=== PATIENT | female | born 1970 | race Caucasian/White ===

== ENCOUNTER 2016-09-27 07:07 | Emergency (ER) | payer OTHER ==
[2016-09-27] MEDS ORDERED: Ondansetron HCl/PF 4 MG/2 ML Vial ONE (07:14)
[2016-09-27 07:37] LABS: #Basophils 0.1 thou/uL (0.0-0.2); #Eosinphils 0.1 thou/uL (0.0-0.7); #Lymphocytes 1.9 thou/uL (1.20-3.40); #Monocytes 0.5 thou/uL (0.11-0.59); #Neutrophils 3.3 thou/uL (1.40-6.50); %Basophils 1.9 % (0.0-1.0); %Eosinophils 1.1 % (0.0-10.0); %Monocytes 8.5 % (0.0-10.0); Hematocrit 43.4 % (36.0-47.0); Mean Platelet Volume 6.4 fL (7.4-10.4); White Blood Cell (WBC) Count 5.9 thou/uL (4.8-10.8)
[2016-09-27 07:38] LABS: Bilirubin Negative (Negative); Blood, Urine Negative (Negative); Glucose, Urine (Dipstick) Negative (Negative); Ketone, Urine Negative (Negative); Nitrite Negative (Negative); Protein, Urine (Dipstick) Negative (Neg-Trace); Urobilinogen 0.2 mg/dL (0.2-1.0)
[2016-09-27 07:52] LABS: Troponin I 0.013 ng/mL (< 0.028)
[2016-09-27 08:00] LABS: ALT (SGPT) 18 U/L (0-55); AST (SGOT) 25 U/L (5-34); Alkaline Phosphatase 51 U/L (40-150); Anion Gap 18 mmol/L (10-20); BUN (Urea Nitrogen) 15 mg/dL (7.0-18.7); Bilirubin, Total 0.7 mg/dL (0.2-1.2); Calc. Creatinine Clearance 0 mL/min (70-130); Calcium 9.8 mg/dL (7.8-10.44); Carbon Dioxide 22 mmol/L (22-29); Chloride 105 mmol/L (98-107); Estimated GFR-MDRD 77; Globulin 3.4 g/dL (2.4-3.5); Protein, Total 8.1 g/dL (6.0-8.3)
--- NOTE | 2016-09-27 08:41 | ERRECORD ---
[facility] EMERGENCY RECORD HPI CHEST PAIN (07:24 WMEI) CHIEF COMPLAINT: Patient presents for evaluation of chest pain, ongoing. HISTORIAN: History provided by patient. LOCATION: Symptoms are localized, most severe in substernal area. QUALITY: Pain is dull in nature, described as pressure-like. TIME COURSE: Sudden onset of symptoms, 30 MIN, Symptoms are improving. ASSOCIATED WITH: No associated fever, Associated with nausea, No associated shortness of breath. EXACERBATED BY: Patient's condition exacerbated by nothing. RELIEVED BY: Patient's condition relieved by nothing. ROS (07:25 WMEI) CONSTITUTIONAL: Historian denies chills, denies fever. EYES: Historian denies eye pain, denies eye discharge. ENT: Historian denies rhinorrhea, denies sore throat. CARDIOVASCULAR: Historian reports chest pain, no radiation, Historian denies diaphoresis. RESPIRATORY: Historian denies cough, denies shortness of breath. GI: Historian denies abdominal pain, reports nausea, denies vomiting. GENITOURINARY FEMALE: Historian denies dysuria, denies frequency. MUSCULOSKELETAL: Historian denies arthralgias, denies joint stiffness. SKIN: Historian denies skin changes, denies skin lesions. NEUROLOGIC: Historian denies confusion, denies mental status changes. ALLERGIC/IMMUNOLOGIC: Historian denies eczema, denies food allergies. PSYCHIATRIC: Historian denies alcohol abuse, denies drug abuse. PAST MEDICAL HISTORY (07:32 JSMI) MEDICAL HISTORY: Tetanus immunization up to date, Notes: [place] ([place]), COPD, high cholesterol, Flu vaccine up to date, Pneumococcal vaccine not up to date. FEMALE SURGICAL HISTORY: heart cath, 1 cardiac stent, Surgical history of appendectomy, Surgical history of hysterectomy. PSYCHIATRIC HISTORY: Previous psychiatric history: PTSD and anxiety. SOCIAL HISTORY: Patient drinks socially, occasionally. Patient denies drug use, Patient is a former tobacco user, smoked cigars, Patient quit smoking less than 10 years ago. . KNOWN ALLERGIES azithromycin codeine &a-1R&a+25V*p+0X*j0299S*c202B*c15G*c2P*p-0X&a-25V&a+1R Name: Elena Mcpherson : 1970 F46 MedRec: [id number] AcctNum: [id number] Prepared: FriSep 27, 2016 08:39 by Interface Page 1 of 3 pMD [facility] EMERGENCY RECORD erythromycin base HYDROcodone bitartrate (bulk) prednisone ranolazine (Unconfirmed) SHRIMP (Unconfirmed) tramadol CURRENT MEDICATIONS No recorded medications VITAL SIGNS VITAL SIGNS: BP: 108/74, Pulse: 77, Resp: 20, Temp: 98.1 (Oral), Pain: 8, O2 sat: 96 on Room Air, Time: 09/27/2016 07:30. (07:30 JSMI) BP: 97/67, Pulse: 56, Resp: 14, Pain: 3, O2 sat: 96 on Room Air, Time: 09/27/2016 07:32. (07:32 JSMI) BP: 100/66, Pulse: 61, Resp: 20, Pain: 3, O2 sat: 95 on ra, Time: 09/27/2016 07:32. (07:32 JSMI) BP: 94/60, Pulse: 52, Resp: 17, Temp: 98.2 (Oral), Pain: 3, O2 sat: 96 on Room Air, Time: 09/27/2016 07:59. (07:59 AHOO) BP: 108/70, Pulse: 53, Resp: 16, O2 sat: 98 on Room Air, Time: 09/27/2016 08:04. (08:04 JSMI) PHYSICAL EXAM (07:26 WMEI) CONSTITUTIONAL: Vital Signs Reviewed, Pulse normal, Blood pressure normal bilaterally, Patient alert and oriented to person, place and time. HEAD: Head exam included findings of head atraumatic, normocephalic. EYES: Extraocular muscles intact, Conjunctiva normal, Sclera normal. ENT: Ear exam normal, Nose exam normal, Pharynx exam normal. NECK: Neck exam included findings of normal range of motion, Trachea midline. RESPIRATORY CHEST: Breath sounds clear, Chest exam included findings of chest movement symmetrical. CARDIOVASCULAR: Heart rate regular rate and rhythm, Heart sounds normal. ABDOMEN FEMALE: Abdominal exam included findings of abdomen nontender, Liver normal, Spleen normal. UPPER EXTREMITY: Upper extremity exam included findings of inspection normal, Range of motion normal, Motor strength normal. LOWER EXTREMITY: Lower extremity exam included findings of inspection normal, Range of motion normal, Motor strength normal. NEURO: Juliette coma scale 15, Neuro exam findings include patient oriented to person, place and time, Speech normal, Gait normal. SKIN: Skin exam included findings of skin warm, dry, and normal in color. LYMPHATIC: Lymphatic exam normal. PSYCHIATRIC: Psychiatric exam included findings of patient oriented to person place and time, Normal affect, Judgment normal, &a-1R&a+25V*p+0X*d4116C*c202B*c15G*c2P*p-0X&a-25V&a+1R Name: Elena Mcpherson : 1970 F46 MedRec: [id number] AcctNum: [id number] Prepared: FriSep 27, 2016 08:39 by Interface Page 2 of 3 pMD [facility] EMERGENCY RECORD Insight normal. RADIOLOGYINTERPRETATION (08:11 WMEI) EXPORT CLERK: Preliminary review of x-rays by, Radiologist, CHEST XRAY NEGATIVE. MEDICATION ADMINISTRATION SUMMARY Drug Name: nitroglycerin sublingual, Dose Ordered: 0.4 mg, Route: Sublingual, Status: Canceled, Time: 07:35 09/27/2016, Drug Name: *sodium chloride 0.9 % intravenous, Dose Ordered: 1 L, Route: IV Fluid Infusion, Status: Given, Time: 07:40 09/27/2016, Drug Name: ondansetron HCl intravenous, Dose Ordered: 4 mg, Route: IV Push, Status: Given, Time: 07:20 09/27/2016, *Additional information available in notes, Detailed record available in Medication Service section. PROBLEM LIST No recorded problems DIAGNOSIS (08:11 WMEI) FINAL: PRIMARY: CHEST PAIN [place]/O [place]. PRESCRIPTION No recorded prescriptions DISPOSITION PATIENT: Disposition Type: Discharge, Disposition: *Discharge Home. (08:10 WMEI) Disposition Type: Transfer, Disposition: Transfer to [facility], Disposition Transport: Ambulance, Condition: Fair. (08:11 WMEI) Patient left the department. (08:32 JSMI) Mojica: AHOO=SHILA Banks, December SURI=ROBER Gordon Julie WMEI=DO Gomez William &a-1R&a+25V*p+0X*o5699O*c202B*c15G*c2P*p-0X&a-25V&a+1R Name: Elena Mcpherson : 1970 F46 MedRec: [id number] AcctNum: [id number] Prepared: FriSep 27, 2016 08:39 by Interface Page 3 of 3 pMD MTDD
--- NOTE | 2016-09-27 08:46 | PICIS ---
[facility] EMERGENCY RECORD TRIAGE (FriSep 27, 2016 07:20 JSMI) PATIENT: NAME: Elena Mcpherson, AGE: 46, GENDER: female, : Sun 1970, TIME OF GREET: FriSep 27, 2016 07:08, PREFERRED LANGUAGE: Serbian, ETHNICITY: Not or , ECODE BILLING MAP: [facility], SSN: [id number], Zip Code: [address], KG WEIGHT: 53.98, PHONE: , , , PERSON ID: [id number], PCP: Sarkis LUEVANO, PHILLIP MAY. (FriSep 27, 2016 07:20 JSMI) COMPLAINT: CP. (FriSep 27, 2016 07:20 JSMI) ADMISSION: URGENCY: 2 Emergent, ADMISSION SOURCE: Work, TRANSPORT: CAR, BED: ER -. (FriSep 27, 2016 07:20 JSMI) ASSESSMENT: Assessment: PT PRESENTS AWAKE ALERT AND ORIENTED. SKIN PINK WARM AND DRY., Symptoms began 09/27/2016 0640. (07:32 JSMI) PAIN: Patient complains of pain described as, sharp. (07:32 JSMI) SIRS SCORING: Heart Rate 55-109 (0), Temp range 96.8-101.1 (0), respiratory rate 12-24 (0), Mental Status altered: no (0), Infection or Suspected Infection: No. (07:32 JSMI) PROVIDERS: TRIAGE NURSE: Frances Gordon RN. (FriSep 27, 2016 07:20 JSMI) VITAL SIGNS: BP 108/74, Pulse 77, Resp 20, Temp 98.1, (Oral), Pain 8, O2 Sat 96, on Room Air, Time 09/27/2016 07:30. (07:30 JSMI) PREVIOUS VISIT ALLERGIES: azithromycin, codeine, erythromycin base, HYDROcodone bitartrate (bulk), prednisone, ranolazine, SHRIMP, tramadol. (FriSep 27, 2016 07:20 JSMI) azithromycin, codeine, erythromycin base, HYDROcodone bitartrate (bulk), prednisone, ranolazine, SHRIMP, tramadol. (07:32 JSMI) KNOWN ALLERGIES azithromycin codeine erythromycin base HYDROcodone bitartrate (bulk) prednisone ranolazine (Unconfirmed) SHRIMP (Unconfirmed) tramadol CURRENT MEDICATIONS No recorded medications VITAL SIGNS VITAL SIGNS: BP: 108/74, Pulse: 77, Resp: 20, Temp: 98.1 (Oral), Pain: 8, O2 sat: 96 on Room Air, Time: 09/27/2016 07:30. (07:30 JSMI) BP: 97/67, Pulse: 56, Resp: 14, Pain: 3, O2 sat: 96 on Room Air, Time: 09/27/2016 07:32. (07:32 JSMI) BP: 100/66, Pulse: 61, Resp: 20, Pain: 3, O2 sat: 95 on ra, Time: 09/27/2016 07:32. (07:32 JSMI) BP: 94/60, Pulse: 52, Resp: 17, Temp: 98.2 (Oral), Pain: 3, O2 sat: 96 on Room Air, Time: 09/27/2016 07:59. (07:59 [facility]) &a-1R&a+25V*p+0X*o3435A*c202B*c15G*c2P*p-0X&a-25V&a+1R Name: Elena Mcpherson : 1970 F46 MedRec: [id number] AcctNum: [id number] Prepared: FriSep 27, 2016 08:43 by Interface Page 1 of 8 pMD [facility] EMERGENCY RECORD BP: 108/70, Pulse: 53, Resp: 16, O2 sat: 98 on Room Air, Time: 09/27/2016 08:04. (08:04 JSMI) NURSING ASSESSMENT: CARDIOVASCULAR (07:32 JSMI) CONSTITUTIONAL: Complex assessment performed, Patient arrives ambulatory, Gait steady, History obtained from patient, Patient appears comfortable, Patient cooperative, Patient alert, Oriented to person, place and time, Skin warm, Skin dry, Skin normal in color, Mucous membranes pink, Mucous membranes moist, Patient is well-groomed, Patient complains of CP, Sharp pain on left side of chest that radiates through to back between shoulder blades. Pt took 325mg ASA and 1 NTG SL [employer]. PAIN: sharp pain, to the left chest, on a scale 0-10 patient rates pain as 3. CARDIOVASCULAR: Cardiovascular assessment findings include heart rate normal, Heart rhythm normal sinus. RESPIRATORY/CHEST: Breath sounds clear, Respiratory assessment findings include respiratory effort easy, Respirations regular, Conversing normally. VITAL SIGNS: BP: 100, / 66, Pulse: 61, Resp: 20, Pain: 3, O2 sat: 95, on: ra. NURSING ASSESSMENT: FALL RISK (08:30 JSMI) FALL RISK: Fall risk assessment findings include: no history of falls (0), No bed rest greater than 2 days (0), No use of level of consciousness altering agents with mentation or cognitive changes (0), No change in blood pressure (0), No sensory deficits (0), No impaired mobility (0), No neurologic diagnosis (0), No elimination problems (0), No confusion (0), Total score 0, No risk for fall. NURSING ASSESSMENT: SKIN (08:30 JSMI) [place]AL[place] SCALE: (4) Sensory perception has no impairment, (4) Skin is rarely moist, (4) Patient walks frequently, (4) No mobility limitations, (4) Excellent Nutrition, (3) Patient has no apparent problem moving, Kalpana Risk Total: 23. NURSING PROCEDURE: BEDSIDE SIRS TESTING (08:31 JSMI) SCORES: Heart Rate 55-109 (0), Temp range 96.8-101.1 (0), respiratory rate 12-24 (0), Latest WBC 3-14.9 (0), Mental Status altered: no (0), Infection or Suspected Infection: No. NURSING PROCEDURE: EKG CHART (07:20 [facility]) PATIENT IDENTIFIER: Patient actively involved in identification process, Patient's identity verified by patient stating name, Patient's identity verified by patient stating date, Patient's identity verified by hospital ID bracelet. EKG: EKG indicated for complaint of chest pain, 12 lead EKG performed on the left chest, done by FRANCES GORDON RN, first EKG, Notes: EKG DONE AT 708 PT WAS NOT IN COMPUTER YET. &a-1R&a+25V*p+0X*x0357V*c202B*c15G*c2P*p-0X&a-25V&a+1R Name: Tony Mcphersonadrienne Cruz : 1970 F46 MedRec: [id number] AcctNum: [id number] Prepared: FriSep 27, 2016 08:43 by Interface Page 2 of 8 [facility] EMERGENCY RECORD FOLLOW-UP: After procedure, EKG for interpretation given to Dr. DR GOMEZ. NURSING PROCEDURE: IV IV SITE 1: IV established, to the right hand, using an 18 gauge catheter, in one attempt, IV site prepped with chlorahexadine, Labs drawn at time of placement, labeled in the presence of the patient and sent to lab. (07:20 JSMI) FOLLOW-UP SITE 1: After procedure, 2x2 dressing applied, After procedure, no drainage at IV site, After procedure, no swelling at IV site, After procedure, no redness at IV site, Notes: SL PATENT, NO BLEEDING, BRUISING OR EDEMA NOTED. (08:22 AHOO) NURSING PROCEDURE: NURSE NOTES (08:10 JSMI) NURSES NOTES: Notes: Pt does not want to be transferred at this time contacting family. NURSING PROCEDURE: TRANSFER (08:23 JSMI) TRANSFER: Reason for transfer need for specialized care, Diagnosis: CP R/O [place], Accepting institution: [facility], Accepting physician: Wong, Referring physician: Jason, Transported by urgent ambulance, accompanied by emergency medical services personnel, Report called to receiving facility, Summary of Care printed, Copy of patient record prepared for receiving facility, Status of patient's valuables documented on chart, Medication reconciliation form prepared and sent to receiving facility, Patient consent for transfer signed, Patient given appropriate sedation for safe transport, Family member contacted. BELONGINGS: bra, cellular phone, eye glasses, Description X2, purse, Description un inventoried, Belongings remain with patient. ORDER DETAILS Order Name: Cardiac Profile w/CKMB & Troponin - I, Status: Active, Time: 07:21 09/27/2016, User: APOLONIA, - Ordered for: DO Gomez William, - Entered by: DO Gomez William - FriSep 27, 2016 07:21, - Quantity: 1, Order Name: CBC with Differential, Status: Active, Time: 07:21 09/27/2016, User: APOLONIA, - Ordered for: DO Gomez William, - Entered by: DO Gomez William - FriSep 27, 2016 07:21, - Quantity: 1, Order Name: Comprehensive Metabolic Panel, Status: Active, Time: 07:21 09/27/2016, User: APOLONIA, - Ordered for: DO Gomez William, - Entered by: DO Gomez William - FriSep 27, 2016 07:21, - Quantity: 1, Order Name: EKG 12 Lead in Emergency Room, Status: Active, Time: 07:21 09/27/2016, User: EI, &a-1R&a+25V*p+0X*g0991R*c202B*c15G*c2P*p-0X&a-25V&a+1R Name: Elena Mcpherson : 1970 F46 MedRec: [id number] AcctNum: [id number] Prepared: FriSep 27, 2016 08:43 by Interface Page 3 of 8 pMD [facility] EMERGENCY RECORD - Ordered for: DO Gomez William, - Entered by: DO Gomez William - FriSep 27, 2016 07:21, - Quantity: 1, Order Name: SALINE LOCK, Status: Done, Time: 07:35 09/27/2016, User: SURI, - Ordered for: DO Gomez William, - Entered by: DO Gomez William - FriSep 27, 2016 07:21, - Quantity: 1, Order Name: Urinalysis w/ Rflx Microscopic, Status: Active, Time: 07:28 09/27/2016, User: APOLONIA, - Ordered for: DO Gomez William, - Entered by: DO Gomez William - FriSep 27, 2016 07:28, - Quantity: 1, Order Name: XR Chest 1 View Portable, Status: Active, Time: 07:21 09/27/2016, User: APOLONIA, - Ordered for: DO Gomez William, - Entered by: DO Gomez William - FriSep 27, 2016 07:21, - Quantity: 1. MEDICATION ADMINISTRATION SUMMARY Drug Name: nitroglycerin sublingual, Dose Ordered: 0.4 mg, Route: Sublingual, Status: Canceled, Time: 07:35 09/27/2016, Drug Name: *sodium chloride 0.9 % intravenous, Dose Ordered: 1 L, Route: IV Fluid Infusion, Status: Given, Time: 07:40 09/27/2016, Drug Name: ondansetron HCl intravenous, Dose Ordered: 4 mg, Route: IV Push, Status: Given, Time: 07:20 09/27/2016, *Additional information available in notes, Detailed record available in Medication Service section. MEDICATION SERVICE ondansetron HCl intravenous: Order: ondansetron HCl intravenous (ondansetron HCl) - Dose: 4 mg : IV Push Ordered by: Last Gomez DO Entered by: Last Gomez DO FriSep 27, 2016 07:22 , Acknowledged by: Jeniffer Banks LVN FriSep 27, 2016 07:34 Documented as given by: Jeniffer Banks LVN FriSep 27, 2016 07:20 Patient, Medication, Dose, Route and Time verified prior to administration. Amount given: 4MG, IV SITE #1 IVP, initial medication, Slowly, Catheter placement confirmed via flush prior to administration, IV site without signs or symptoms of infiltration during medication administration, No swelling during administration, No drainage during administration, IV flushed after administration, Correct patient, time, route, dose and medication confirmed prior to administration, Patient advised of actions and side-effects prior to administration, Allergies confirmed and medications reviewed prior to administration, Patient in position of comfort, Side rails up, Cart in lowest position, Family at bedside. : Follow Up : Response assessment performed, No signs or &a-1R&a+25V*p+0X*b3518Y*c202B*c15G*c2P*p-0X&a-25V&a+1R Name: Elena Mcpherson : 1970 F46 MedRec: [id number] AcctNum: [id number] Prepared: FriSep 27, 2016 08:43 by Interface Page 4 of 8 pMD [facility] EMERGENCY RECORD symptoms of allergic reaction noted, Decreased nausea, _IV SITE #1:_. (08:21 [facility]) sodium chloride 0.9 % intravenous: Order: sodium chloride 0.9 % intravenous (0.9 % sodium chloride) - Dose: 1 L : IV Fluid Infusion Notes: (Bolus) Ordered by: Last Gomez DO Entered by: Last Gomez DO FriSep 27, 2016 07:22 Documented as given by: Jeniffer Banks LVN FriSep 27, 2016 07:40 Patient, Medication, Dose, Route and Time verified prior to administration. Amount given: 1 L, IV SITE #1 IV fluids established for hydration, IV SITE #1 into right hand, IV SITE #1 1st bag hung, amount 1 Liter hung, IV SITE #1 bolus of 1000 ml established, via gravity tubing, Awake and alert- acceptable, Catheter placement confirmed via flush prior to administration, IV site without signs or symptoms of infiltration during medication administration, No swelling during administration, No drainage during administration, IV flushed after administration, Correct patient, time, route, dose and medication confirmed prior to administration, Patient advised of actions and side-effects prior to administration, Allergies confirmed and medications reviewed prior to administration, Patient in position of comfort, Side rails up, Cart in lowest position, Family at bedside. : Follow Up : Response assessment performed, No signs or symptoms of allergic reaction noted, _IV SITE #1:_, IV fluid infusion discontinued, on FriSep 27, 2016 08:22, 45 minutes, ., Total amount infused: 1 L, IV Line flushed after administration, PATENT UPON TRANSPORT. (08:22 AHOO) (CANCELED) nitroglycerin sublingual: Order: nitroglycerin sublingual (nitroglycerin) - Dose: 0.4 mg : Sublingual Schedule: Now Ordered by: Last Gomez DO Entered by: Last Gomez DO FriSep 27, 2016 07:23 , Acknowledged by: Jeniffer Banks LVN FriSep 27, 2016 07:34 Canceled by: Jeniffer Banks LVN. FriSep 27, 2016 07:35 Cancel reason: Change in medication plan:PT HAD NITRO BEFORE SHE GOT HERE AND BP IS 100/66. HPI CHEST PAIN (07:24 WMEI) CHIEF COMPLAINT: Patient presents for evaluation of chest pain, ongoing. HISTORIAN: History provided by patient. LOCATION: Symptoms are localized, most severe in substernal area. QUALITY: Pain is dull in nature, described as pressure-like. TIME COURSE: Sudden onset of symptoms, 30 MIN, Symptoms are improving. ASSOCIATED WITH: No associated fever, Associated with nausea, No associated shortness of breath. &a-1R&a+25V*p+0X*z9308M*c202B*c15G*c2P*p-0X&a-25V&a+1R Name: Elena Mcpherson : 1970 F46 MedRec: [id number] AcctNum: [id number] Prepared: FriSep 27, 2016 08:43 by Interface Page 5 of 8 pMD [facility] EMERGENCY RECORD EXACERBATED BY: Patient's condition exacerbated by nothing. RELIEVED BY: Patient's condition relieved by nothing. ROS (07:25 WMEI) CONSTITUTIONAL: Historian denies chills, denies fever. EYES: Historian denies eye pain, denies eye discharge. ENT: Historian denies rhinorrhea, denies sore throat. CARDIOVASCULAR: Historian reports chest pain, no radiation, Historian denies diaphoresis. RESPIRATORY: Historian denies cough, denies shortness of breath. GI: Historian denies abdominal pain, reports nausea, denies vomiting. GENITOURINARY FEMALE: Historian denies dysuria, denies frequency. MUSCULOSKELETAL: Historian denies arthralgias, denies joint stiffness. SKIN: Historian denies skin changes, denies skin lesions. NEUROLOGIC: Historian denies confusion, denies mental status changes. ALLERGIC/IMMUNOLOGIC: Historian denies eczema, denies food allergies. PSYCHIATRIC: Historian denies alcohol abuse, denies drug abuse. PAST MEDICAL HISTORY (07:32 JSMI) MEDICAL HISTORY: Tetanus immunization up to date, Notes: [place] (2012), COPD, high cholesterol, Flu vaccine up to date, Pneumococcal vaccine not up to date. FEMALE SURGICAL HISTORY: heart cath, 1 cardiac stent, Surgical history of appendectomy, Surgical history of hysterectomy. PSYCHIATRIC HISTORY: Previous psychiatric history: PTSD and anxiety. SOCIAL HISTORY: Patient drinks socially, occasionally. Patient denies drug use, Patient is a former tobacco user, smoked cigars, Patient quit smoking less than 10 years ago. . PHYSICAL EXAM (07:26 WMEI) CONSTITUTIONAL: Vital Signs Reviewed, Pulse normal, Blood pressure normal bilaterally, Patient alert and oriented to person, place and time. HEAD: Head exam included findings of head atraumatic, normocephalic. EYES: Extraocular muscles intact, Conjunctiva normal, Sclera normal. ENT: Ear exam normal, Nose exam normal, Pharynx exam normal. NECK: Neck exam included findings of normal range of motion, Trachea midline. RESPIRATORY CHEST: Breath sounds clear, Chest exam included findings of chest movement symmetrical. CARDIOVASCULAR: Heart rate regular rate and rhythm, Heart sounds normal. &a-1R&a+25V*p+0X*e4151Q*c202B*c15G*c2P*p-0X&a-25V&a+1R Name: Elena Mcpherson : 1970 F46 MedRec: [id number] AcctNum: [id number] Prepared: FriSep 27, 2016 08:43 by Interface Page 6 of 8 pMD [facility] EMERGENCY RECORD ABDOMEN FEMALE: Abdominal exam included findings of abdomen nontender, Liver normal, Spleen normal. UPPER EXTREMITY: Upper extremity exam included findings of inspection normal, Range of motion normal, Motor strength normal. LOWER EXTREMITY: Lower extremity exam included findings of inspection normal, Range of motion normal, Motor strength normal. NEURO: Juliette coma scale 15, Neuro exam findings include patient oriented to person, place and time, Speech normal, Gait normal. SKIN: Skin exam included findings of skin warm, dry, and normal in color. LYMPHATIC: Lymphatic exam normal. PSYCHIATRIC: Psychiatric exam included findings of patient oriented to person place and time, Normal affect, Judgment normal, Insight normal. EVENTS TRANSFER: Triage to Emergency Emergency Room -01. (FriSep 27, 2016 07:20 JSMI) Removed from Emergency Emergency Room -01. (08:32 JSMI) RADIOLOGYINTERPRETATION (08:11 WMEI) CST: Preliminary review of x-rays by, Radiologist, CHEST XRAY NEGATIVE. PROBLEM LIST No recorded problems DIAGNOSIS (08:11 WMEI) FINAL: PRIMARY: CHEST PAIN R/O [place]. DISPOSITION PATIENT: Disposition Type: Discharge, Disposition: *Discharge Home. (08:10 WMEI) Disposition Type: Transfer, Disposition: Transfer to [facility], Disposition Transport: Ambulance, Condition: Fair. (08:11 WMEI) Patient left the department. (08:32 JSMI) PRESCRIPTION No recorded prescriptions IMAGING *EKG: Image captured from scanner. (07:43 AHOO) MONITOR STRIPS: Image captured from scanner. (07:44 AHOO) CONSENTS: Image captured from scanner. (08:20 AHOO) *MEMORANDUM OF TRANSFER: Image captured from scanner. (08:20 AHOO) PHYSICIAN CERTIFICATION STATEMENT: Image captured from scanner. (08:21 AHOO) *SUPPLY CHARGE SHEET: Image captured from scanner. (08:21 AHOO) &a-1R&a+25V*p+0X*g4104C*c202B*c15G*c2P*p-0X&a-25V&a+1R Name: Elena Mcpherson : 1970 F46 MedRec: [id number] AcctNum: [id number] Prepared: FriSep 27, 2016 08:43 by Interface Page 7 of 8 pMD [facility] EMERGENCY RECORD ADMIN (08:33 WMEI) DIGITAL SIGNATURE: DO Gomez William. Mojica: AHOO=SHILA Banks, December JSMI=ROBER Gordon, Frances WMEI=DO Gomez William &a-1R&a+25V*p+0X*c7431C*c202B*c15G*c2P*p-0X&a-25V&a+1R Name: Elena Mcpherson : 1970 6 MedRec: [id number] AcctNum: [id number] Prepared: FriSep 27, 2016 08:43 by Interface Page 8 of 8 pMD MTDD
--- NOTE | 2016-09-27 12:47 | RAD ---
PORTABLE CHEST: Date: 09/27/16 An AP portable at 0722 hours is compared with the 01/22/16 study. FINDINGS: The heart is normal in size and the lungs are clear. No vascular congestion, edema, or pleural effus ion seen. The mediastinum appears normal. IMPRESSION: No acute thoracic findings. POS: H
== END 2016-09-27 08:23 | disposition short-term general hospital (02) ==
LOC: BURERS 07:07
DX: R07.9 Chest pain, unspecified (principal); I25.2 Old myocardial infarction; J44.9 Chronic obstructive pulmonary disease, unspecified; E78.00 Pure hypercholesterolemia, unspecified; Z87.891 Personal history of nicotine dependence
CPT/HCPCS: 71010; 80053; 81003; 82553; 84484; 85025; 93005; 96361; 96374; J2405

== ENCOUNTER 2017-08-19 07:45 | Emergency (ER) | payer OTHER ==
[2017-08-19] MEDS ORDERED: Ondansetron ODT 4 MG TAB ONE (08:14)
[2017-08-19] MEDS ORDERED: Nitroglycerin 0.4 MG TAB (25 Tab Bottle) ONE (08:14)
[2017-08-19 08:19] LABS: #Basophils 0.1 thou/uL (0.0-0.2); #Eosinphils 0.1 thou/uL (0.0-0.7); #Lymphocytes 1.6 thou/uL (1.20-3.40); #Monocytes 0.5 thou/uL (0.11-0.59); #Neutrophils 2.7 thou/uL (1.40-6.50); %Basophils 2.3 % (0.0-1.0); %Eosinophils 1.8 % (0.0-10.0); %Lymphocytes 31.2 % (21.0-51.0); %Monocytes 10.1 % (0.0-10.0); %Neutrophils 54.6 % (42.0-75.0); Hemoglobin 13.1 g/dL (12.0-16.0); Mean Corpuscular HGB CONC 32.5 g/dL (32.0-36.0); Mean Corpuscular Hemoglobin 30.5 pg (27.0-31.0); Mean Corpuscular Volume 93.8 fl (81.0-99.0); Mean Platelet Volume 7.4 fL (7.4-10.4); Platelet Count 243 thou/uL (130-400); Red Blood Cell (RBC) Count 4.29 mill/uL (4.20-5.40)
[2017-08-19] MEDS ORDERED: Promethazine HCl 25 MG/ML VIAL ONE (08:22)
[2017-08-19 08:24] LABS: ALT (SGPT) 16 U/L (8-55); AST (SGOT) 20 U/L (5-34); Albumin 4.4 g/dL (3.5-5.0); Alkaline Phosphatase 68 U/L (40-150); Anion Gap 13 mmol/L (10-20); BUN (Urea Nitrogen) 10 mg/dL (7.0-18.7); Bilirubin, Total 0.5 mg/dL (0.2-1.2); CK (CPK) 98 U/L (29-168); Calc. Creatinine Clearance 0 mL/min (70-130); Calcium 9.1 mg/dL (7.8-10.44); Carbon Dioxide 25 mmol/L (22-29); Chloride 105 mmol/L (98-107); Estimated GFR-MDRD 78; Globulin 2.8 g/dL (2.4-3.5); Glucose 87 mg/dL (70-105); Lipase 73 U/L (8-78); Potassium 4.2 mmol/L (3.5-5.1); Protein, Total 7.2 g/dL (6.0-8.3); Sodium 139 mmol/L (136-145)
[2017-08-19 08:34] LABS: Troponin I Less than 0.010 ng/mL (< 0.028)
[2017-08-19] MEDS ORDERED: Nitroglycerin 2% Ointment 1 INCH/1 GM Packet ONE (09:01)
[2017-08-19] MEDS ORDERED: Fentanyl 100 MCG/2 ML VIAL ONE (09:43)
--- NOTE | 2017-08-19 20:38 | RAD ---
PORTABLE CHEST 08/19/17 An AP portable film at 0757 is compared with an 07/17/[address] [facility]. The heart is normal in size and the lungs are clear. No infiltrate or effusion was seen. The mediasti num appears normal and the trachea is midline. IMPRESSION: No acute findings. POS: HOME
== END 2017-08-19 09:50 | disposition short-term general hospital (02) ==
LOC: BURERS 07:45
DX: R07.2 Precordial pain (principal); I25.2 Old myocardial infarction; E78.5 Hyperlipidemia, unspecified; J44.9 Chronic obstructive pulmonary disease, unspecified; F41.9 Anxiety disorder, unspecified; F32.9 Major depressive disorder, single episode, unspecified; F43.10 Post-traumatic stress disorder, unspecified; Z79.82 Long term (current) use of aspirin; Z79.899 Other long term (current) drug therapy
CPT/HCPCS: 71010; 80053; 82550; 82553; 83690; 84484; 85025; 93005; 96374; 96375; J2550; J3010; Q0162

== ENCOUNTER 2018-04-01 12:18 | Emergency (ER) | payer OTHER ==
[2018-04-01 13:00] LABS: Bilirubin Negative (Negative); Blood, Urine Negative (Negative); Clarity Clear (Clear); Glucose, Urine (Dipstick) Negative (Negative); Leukocyte Negative (Negative); Nitrite Negative (Negative); Protein, Urine (Dipstick) Negative (Neg-Trace); Specific Gravity, Urine 1.015 (1.005-1.030); Urobilinogen 0.2 mg/dL (0.2-1.0); pH, Urine 7.5 (5.0-9.0)
[2018-04-01 13:02] LABS: #Basophils 0.1 thou/uL (0.0-0.2); #Eosinphils 0.1 thou/uL (0.0-0.7); #Lymphocytes 1.8 thou/uL (1.20-3.40); #Monocytes 0.6 thou/uL (0.11-0.59); %Basophils 1.4 % (0.0-1.0); %Eosinophils 2.6 % (0.0-10.0); %Lymphocytes 31.9 % (21.0-51.0); %Monocytes 10.1 % (0.0-10.0); %Neutrophils 53.9 % (42.0-75.0); Mean Corpuscular HGB CONC 34.4 g/dL (32.0-36.0); Mean Corpuscular Hemoglobin 29.2 pg (27.0-31.0); Mean Corpuscular Volume 84.9 fL (78.0-98.0); Mean Platelet Volume 6.5 fL (7.4-10.4); Platelet Count 229 thou/uL (130-400); RBC Distribution Width 12.6 % (11.5-14.5); Red Blood Cell (RBC) Count 4.09 mill/uL (4.20-5.40); White Blood Cell (WBC) Count 5.6 thou/uL (4.8-10.8)
[2018-04-01] MEDS ORDERED: Prochlorperazine 10 MG/2 ML VIAL ONE (13:13)
[2018-04-01 13:18] LABS: ALT (SGPT) 91 U/L (8-55); AST (SGOT) 65 U/L (5-34); Albumin 4.3 g/dL (3.5-5.0); Alkaline Phosphatase 93 U/L (40-150); Anion Gap 14 mmol/L (10-20); BUN (Urea Nitrogen) 8 mg/dL (7.0-18.7); Bilirubin, Total 0.3 mg/dL (0.2-1.2); Calc. Creatinine Clearance 0 mL/min (70-130); Calcium 9.5 mg/dL (7.8-10.44); Carbon Dioxide 29 mmol/L (22-29); Chloride 103 mmol/L (98-107); Estimated GFR-MDRD 83; Globulin 2.7 g/dL (2.4-3.5); Glucose 91 mg/dL (70-105); Potassium 4.1 mmol/L (3.5-5.1); Sodium 142 mmol/L (136-145)
[2018-04-01 13:47] LABS: Lipase 71 U/L (8-78)
== END 2018-04-01 14:07 | disposition home or self-care (01) ==
LOC: BURERS 12:18
DX: R11.2 Nausea with vomiting, unspecified (principal); I25.2 Old myocardial infarction; E78.5 Hyperlipidemia, unspecified; J44.9 Chronic obstructive pulmonary disease, unspecified; F41.9 Anxiety disorder, unspecified; F32.9 Major depressive disorder, single episode, unspecified; Z87.891 Personal history of nicotine dependence; Z79.82 Long term (current) use of aspirin; Z79.899 Other long term (current) drug therapy
CPT/HCPCS: 80053; 81003; 83690; 85025; 96365; J0780

== ENCOUNTER 2018-08-03 12:03 | Emergency (ER) | payer OTHER ==
[2018-08-03] MEDS ORDERED: Morphine 10 MG/ML VIAL ONE (12:34)
[2018-08-03] MEDS ORDERED: Promethazine HCl 25 MG/ML VIAL ONE ×2 (12:34→12:35)
[2018-08-03] MEDS ORDERED: diphenhydrAMINE 25 MG CAP ONE (12:34)
[2018-08-03 12:45] LABS: #Basophils 0.1 thou/uL (0.0-0.2); #Eosinphils 0.1 thou/uL (0.0-0.7); #Lymphocytes 1.6 thou/uL (1.20-3.40); #Monocytes 0.4 thou/uL (0.11-0.59); #Neutrophils 2.9 thou/uL (1.40-6.50); %Basophils 1.5 % (0.0-1.0); %Eosinophils 1.2 % (0.0-10.0); %Lymphocytes 32.7 % (21.0-51.0); %Monocytes 7.6 % (0.0-10.0); Hemoglobin 11.8 g/dL (12.0-16.0); Mean Corpuscular HGB CONC 33.2 g/dL (32.0-36.0); Mean Corpuscular Hemoglobin 28.5 pg (27.0-31.0); Mean Corpuscular Volume 85.9 fL (78.0-98.0); Mean Platelet Volume 7.8 fL (7.4-10.4); Platelet Count 263 thou/uL (130-400); RBC Distribution Width 14.2 % (11.5-14.5); Red Blood Cell (RBC) Count 4.14 mill/uL (4.20-5.40)
[2018-08-03 12:53] LABS: Clarity Clear (Clear)
[2018-08-03 12:54] LABS: Bilirubin Negative (Negative); Blood, Urine Trace (Negative); Glucose, Urine (Dipstick) Negative (Negative); Leukocyte Negative (Negative); Nitrite Negative (Negative); Protein, Urine (Dipstick) Negative (Neg-Trace); Urobilinogen 0.2 mg/dL (0.2-1.0)
[2018-08-03 13:01] LABS: Bacteria/HPF Rare-Few HPF (None Seen); RBC/HPF 0-3 HPF (0-3); Squamous Epithelial 0-3 HPF (0-3); WBC/HPF 0-3 HPF (0-3)
[2018-08-03 13:05] LABS: ALT (SGPT) 15 U/L (8-55); AST (SGOT) 17 U/L (5-34); Albumin 4.2 g/dL (3.5-5.0); Alkaline Phosphatase 79 U/L (40-150); Anion Gap 13 mmol/L (10-20); BUN (Urea Nitrogen) 5 mg/dL (7.0-18.7); Bilirubin, Total 0.3 mg/dL (0.2-1.2); Calc. Creatinine Clearance 0 mL/min (70-130); Calcium 8.9 mg/dL (7.8-10.44); Carbon Dioxide 25 mmol/L (22-29); Chloride 108 mmol/L (98-107); Estimated GFR-MDRD 87; Globulin 2.4 g/dL (2.4-3.5); Glucose 91 mg/dL (70-105); Lipase 81 U/L (8-78); Potassium 4.1 mmol/L (3.5-5.1); Protein, Total 6.6 g/dL (6.0-8.3); Sodium 142 mmol/L (136-145)
== END 2018-08-03 14:10 | disposition home or self-care (01) ==
LOC: BURERS 12:03
DX: K86.1 Other chronic pancreatitis (principal); F41.9 Anxiety disorder, unspecified; I25.2 Old myocardial infarction; J44.9 Chronic obstructive pulmonary disease, unspecified; F43.10 Post-traumatic stress disorder, unspecified; Z87.891 Personal history of nicotine dependence; Z79.899 Other long term (current) drug therapy; Z79.891 Long term (current) use of opiate analgesic; Z79.82 Long term (current) use of aspirin
CPT/HCPCS: 80053; 81003; 81015; 83690; 85025; 93005; 96361; 96365; 96375; J2270; J2550

== ENCOUNTER 2019-03-01 07:03 | Emergency (ER) | payer OTHER ==
[2019-03-01] MEDS ORDERED: Aspirin Chewable 81 MG TAB ONE (07:27)
[2019-03-01 07:35] LABS: #Basophils 0.1 thou/uL (0.0-0.2); #Eosinphils 0.1 thou/uL (0.0-0.7); #Monocytes 0.5 thou/uL (0.11-0.59); #Neutrophils 2.3 thou/uL (1.40-6.50); %Basophils 1.8 % (0.0-1.0); %Eosinophils 2.4 % (0.0-10.0); %Monocytes 10.9 % (0.0-10.0); %Neutrophils 51.9 % (42.0-75.0); Hemoglobin 12.7 g/dL (12.0-16.0); MDiff Complete? YES; Manual Diff?? NO; Mean Corpuscular HGB CONC 30.8 g/dL (32.0-36.0); Mean Corpuscular Hemoglobin 28.2 pg (27.0-31.0); Mean Corpuscular Volume 91.6 fL (78.0-98.0); Mean Platelet Volume 7.3 fL (7.4-10.4); Platelet Count 204 thou/uL (130-400); RBC Distribution Width 14.9 % (11.5-14.5); White Blood Cell (WBC) Count 4.5 thou/uL (4.8-10.8)
[2019-03-01 07:46] LABS: ALT (SGPT) 22 U/L (8-55); AST (SGOT) 20 U/L (5-34); Albumin 4.4 g/dL (3.5-5.0); Alkaline Phosphatase 110 U/L (40-150); Anion Gap 14 mmol/L (10-20); BUN (Urea Nitrogen) 19 mg/dL (7.0-18.7); Bilirubin, Total 0.3 mg/dL (0.2-1.2); Calc. Creatinine Clearance 0 mL/min (70-130); Calcium 9.7 mg/dL (7.8-10.44); Carbon Dioxide 26 mmol/L (22-29); Chloride 102 mmol/L (98-107); Estimated GFR-MDRD 80; Globulin 2.8 g/dL (2.4-3.5); Glucose 85 mg/dL (70-105); Lipase 61 U/L (8-78); Potassium 4.1 mmol/L (3.5-5.1); Protein, Total 7.2 g/dL (6.0-8.3); Sodium 138 mmol/L (136-145)
[2019-03-01] MEDS ORDERED: Ketorolac Tromethamine 30 MG/ML VIAL ONE (07:55)
--- NOTE | 2019-03-01 19:23 | RAD ---
PORTABLE CHEST: Date: 03/01/19 An AP portable film at 0729 hours is compared with the 06/06/18 study. The heart is normal in size and the lungs are clear. There is no acute infiltrate, effusion, or vascu lar congestion. The mediastinum appears normal. IMPRESSION: No acute thoracic findings. POS: HOME
== END 2019-03-01 08:35 | disposition home or self-care (01) ==
LOC: BURERS 07:03
DX: R07.2 Precordial pain (principal); I25.2 Old myocardial infarction; E78.00 Pure hypercholesterolemia, unspecified; J44.9 Chronic obstructive pulmonary disease, unspecified; F41.9 Anxiety disorder, unspecified; F32.9 Major depressive disorder, single episode, unspecified; F17.210 Nicotine dependence, cigarettes, uncomplicated; Z79.82 Long term (current) use of aspirin; Z79.899 Other long term (current) drug therapy
CPT/HCPCS: 36415; 71045; 80053; 83690; 83880; 84484; 85025; 93005; 96374; J1885

== ENCOUNTER 2019-03-17 15:28 | Outpatient (CLI) | payer OTHER ==
--- NOTE | 2019-03-17 18:56 | RAD ---
LEFT WRIST THREE VIEWS: 03/17/19 There is a fracture of the distal radius, undisplaced. The distal ulna appears intact. The carpal mayra vinay appear normal. IMPRESSION: Undisplaced fracture of the distal radius. Code T POS: HOME
== END 2019-03-17 15:29 | disposition home or self-care (01) ==
LOC: BURRAD 15:28
PROVIDERS: ATTEND Family Medicine
DX: M25.532 Pain in left wrist (principal); S52.502A Unspecified fracture of the lower end of left radius, initial encounter for closed fracture